=== PATIENT | female | born 1965 | race Caucasian/White ===

== ENCOUNTER 2017-07-12 16:54 | Emergency (ER) | payer BC ==
[~2017-07-12] VITALS: Ht 160 cm; Wt 112.0 kg
[2017-07-12] MEDS ORDERED: LOSA25TA12 PO (16:59)
[2017-07-12] MEDS ORDERED: PREDNISONE 10MG TABLET PO ONE (17:45)
[2017-07-12] MEDS ORDERED: DIPHENHYDRAMINE 50MG/ML VIAL IV ONE (17:45)
[2017-07-12 20:04] VITALS: BP 132/71
== END 2017-07-12 20:04 | disposition home or self-care (01) ==
LOC: ER 17:28
DX: T78.1XXA Other adverse food reactions, not elsewhere classified, initial encounter (principal); I10 Essential (primary) hypertension; E66.01 Morbid (severe) obesity due to excess calories; Z68.41 Body mass index [BMI] 40.0-44.9, adult; Z87.440 Personal history of urinary (tract) infections; X58.XXXA Exposure to other specified factors, initial encounter
CPT/HCPCS: 96374; 99284; J1200; J7512; Z7610